=== PATIENT | female | born 1955 | race Caucasian/White ===

== ENCOUNTER → 2016-10-31 | Outpatient (CLI) | payer MEDICARE, OTHER ==
[~2016-10-31] MED LIST: ADVAIR 250-501 EACH IH; ALLEGRA PO; ANAPROX DS550 M1 PO; ATENOLOL25 MG PO; AZITHROMYCIN250 MG PO; BONIVA150 MG PO; DULERA 100 MCG/13 GM IH; ESOMEPRAZOLE MA40 MG PO; FLEXERIL10 M1 PO; FLEXERIL10 MG PO; K-DUR20 ME1 PO; LIPITOR PO; NAPROSYN500 MG PO; PRILOSEC PO; PROTONIX PO; SPIRIVA18 MCG INH; SYMBICORT80; SYMBICORT80 INH; TOPROL XL PO; ULTRAM PO
--- NOTE | ~2016-10-31 | MY9 ---
[facility] A Service of [facility] RADIOLOGY TEXT RESULTS PATIENT: JULIO CESAR ELROY LOCATION: [facility] : 57 UNIT #: [id number] AGE: [address]: Darwin Soto MD SEX: F ORDER DR: [id number] [facility] [address] [place], [place] [address] [id number] O MR#: [id number] Acc #: [id number] NAME: JULIO CESAR LEROY : 1955 SEX: F STUDY DATE/TIME: 10/31/2016 15:03 UNIT: [facility] ROOM: STUDY DESCRIPTION: MY Mammogram Screen Uni Dig Lt Attending Physician: Darwin Soto M.D., Ph.D. Ordering Physician: Darwin Soto M.D., Ph.D. Primary Care Physician: Ilan Billy M.D. MEDICAL IMAGING REPORT This report is preliminary unless electronic signature is present EXAM Screening left mammogram, 10/31 INDICATIONS History of right mastectomy for breast cancer. No current complaints. Patient reports weight loss since previous mammogram. FINDINGS Digital CC, MLO, and exaggerated CC views of the left breast were obtained. Study is reviewed with an FDA-approved CAD device. Comparison made with 09/22/2015, 09/18/2014, and 09/09/2013. Breast parenchyma remains heterogeneously dense. There are no dominant masses or suspicious microcalcification. IMPRESSION Negative mammogram. Follow up in 1 year recommended. Patients over the age of 40 are entered into a reminder system with target due date for the next mammogram. A result letter will also be sent to the patient. BIRADS: 1 Negative Dictated by... Scooter Junior Jr., M.D. THIS IS AN ELECTRONICALLY VERIFIED REPORT Scooter Junior Jr., M.D. at 11/01/2016 7:24 AM STEVE/siria TD: 10/31/2016 17:30 [facility] A Service of [facility] RADIOLOGY TEXT RESULTS PATIENT: JULIO CESAR LEROY LOCATION: [facility] #: [id number] : 57 UNIT #: [id number] AGE: [address]: Darwin Soto MD SEX: F ORDER DR: JOB #: [id number] MEDICAL IMAGING REPORT Page 1 of 1 COPY
== END | disposition home or self-care (01) ==
LOC: CWCC 14:34
DX: Z12.31 Encounter for screening mammogram for malignant neoplasm of breast (principal); Z85.3 Personal history of malignant neoplasm of breast; Z90.11 Acquired absence of right breast and nipple
CPT/HCPCS: G0202

== ENCOUNTER 2016-12-31 20:25 | Emergency (ER) | payer MEDICARE, OTHER ==
--- NOTE | ~2016-12-31 | EKG ---
PATIENT: JULIO CESAR LEROY UNIT #: [id number] Ventricular Rate: 115 BPM Atrial Rate: 115 BPM P-R Interval: 140 ms QRS Duration: 70 ms Q-T Interval: 326 ms QTC Calculation(Bezet): 450 ms P [place]: 51 degrees Calculated R [place]: 52 degrees Calculated T [place]: 54 degrees Diagnosis Line: Sinus tachycardia Diagnosis Line: Possible Left atrial enlargement Diagnosis Line: Borderline ECG Diagnosis Line: No previous ECGs available Diagnosis Line: Confirmed by ABHAY ARNOLD MD ([id number]) on Diagnosis Line: 01/01/2017 10:08:33 AM INTERPRETING MD: DIONNE
[2016-12-31 22:44] LABS: BASOPHIL% 0.2 % (0-2.5); EOSINOPHIL% 0.1 % (0.0-7.0); HEMOGLOBIN 11.7 gm/dL (12.0-16.0); LYMPHOCYTE# 0.3 X10e3 (1.0-3.5); LYMPHOCYTE% 4.1 % (17.0-45.0); MEAN CELL VOLUME 92.7 FL (83-96); MEAN CORPUSCULAR HEMOGLOBIN 30.1 PG (28-34); MEAN CORPUSCULAR HGB CONC 32.5 g/dL (30-36); MEAN PLATELET VOLUME 8.2 FL (6.5-11.5); MONOCYTE# 0.6 X10e3 (0-1.0); MONOCYTE% 7.8 % (3.0-12.0); NEUTROPHIL% 87.8 % (40-75); PLATELET COUNT 286 X10e3 (140-420); RED BLOOD COUNT 3.89 X10e (3.90-5.30); RED CELL DISTRIBUTION WIDTH 12.5 % (11.0-15.5)
[2016-12-31 22:56] LABS: DIFF IND NO
[2016-12-31 23:02] LABS: ALBUMIN SERUM 3.9 g/dL (3.5-5.0); ALKALINE PHOSPHATASE 81 U/L (32-92); ALT (SGPT) 12 U/L (10-40); AST (SGOT) 21 U/L (10-42); BILIRUBIN,TOTAL 0.5 mg/dL (0.2-2.0); BLOOD UREA NITROGEN 15 mg/dL (9-23); CALCIUM SERUM 8.8 mg/dL (8.4-10.2); CARBON DIOXIDE 38 mmol/L (22-31); CHLORIDE 95 mmol/L (100-111); CREATININE SERUM 0.4 mg/dL (0.6-1.4); GLOM FILT RATE Estimated 113.2 mL/min (>60); GLUCOSE FASTING 141 mg/dL (70-110); POTASSIUM 4.2 mmol/L (3.5-5.1); PROTEIN TOTAL SERUM 7.7 g/dL (6.0-8.3); SODIUM 137 mmol/L (135-145)
[2016-12-31 23:14] LABS: BILIRUBIN, DIRECT <0.1 mg/dL (0.0-0.2); BILIRUBIN,INDIRECT 0.4 mg/dL (0.0-0.9)
[2017-01-01 00:02] LABS: URINE SOURCE CLEAN CATCH
[2017-01-01 00:11] LABS: URINE APPEARANCE CLEAR; URINE BILIRUBIN NEG (NEG); URINE BLOOD NEG (NEG); URINE COLOR YELLOW; URINE GLUCOSE 500 MG/DL (NEG); URINE KETONE NEG (NEG); URINE LEUKOCYTE ESTERASE NEG (NEG); URINE NITRATE NEG (NEG); URINE PH 5.5 (5-8); URINE PROTEIN NEG (NEG); URINE SPECIFIC GRAVITY 1.025 (1.003-1.035); URINE UROBILINOGEN 0.2 MG/DL (NEG)
[2017-01-01 00:22] LABS: CULTURE INDICATED? NO
== END 2017-01-01 01:00 | disposition home or self-care (01) ==
LOC: CED 20:25
PROVIDERS: Emergency Medicine
DX: E11.649 Type 2 diabetes mellitus with hypoglycemia without coma (principal); J44.9 Chronic obstructive pulmonary disease, unspecified; E78.5 Hyperlipidemia, unspecified; K21.9 Gastro-esophageal reflux disease without esophagitis; I10 Essential (primary) hypertension; D64.9 Anemia, unspecified; R63.0 Anorexia; Z68.1 Body mass index [BMI] 19.9 or less, adult; Z79.899 Other long term (current) drug therapy
CPT/HCPCS: 36415; 80048; 80076; 81003; 82947; 85025; 93005; 99284

== ENCOUNTER → 2017-03-09 | Outpatient (CLI) | payer MEDICARE, OTHER ==
[2017-03-09 15:35] LABS: BASOPHIL% 0.7 % (0-2.5); HEMATOCRIT 37.2 % (35.0-45.0); HEMOGLOBIN 12.6 gm/dL (12.0-16.0); LYMPHOCYTE# 0.6 X10e3 (1.0-3.5); LYMPHOCYTE% 12.8 % (17.0-45.0); MEAN CORPUSCULAR HEMOGLOBIN 30.7 PG (28-34); MEAN CORPUSCULAR HGB CONC 33.7 g/dL (30-36); MEAN PLATELET VOLUME 7.6 FL (6.5-11.5); MONOCYTE# 0.3 X10e3 (0-1.0); MONOCYTE% 6.6 % (3.0-12.0); NEUTROPHIL# 3.7 X10e3 (1.5-7.1); NEUTROPHIL% 78.9 % (40-75); PLATELET COUNT 267 X10e3 (140-420); RED BLOOD COUNT 4.09 X10e (3.90-5.30); RED CELL DISTRIBUTION WIDTH 12.4 % (11.0-15.5); WHITE BLOOD COUNT 4.7 X10e3 (4.0-10.5)
[2017-03-09 15:46] LABS: DIFF IND NO
[2017-03-09 16:42] LABS: ALBUMIN SERUM 4.4 g/dL (3.5-5.0); BILIRUBIN,TOTAL 0.5 mg/dL (0.2-2.0); CALCIUM SERUM 9.8 mg/dL (8.4-10.2); CREATININE SERUM 0.4 mg/dL (0.6-1.4); GLOM FILT RATE Estimated 113.2 mL/min (>60); POTASSIUM 4.6 mmol/L (3.5-5.1); PROTEIN TOTAL SERUM 8.2 g/dL (6.0-8.3)
== END | disposition home or self-care (01) ==
LOC: SLAB 15:03
PROVIDERS: Nurse Practitioner
DX: A31.9 Mycobacterial infection, unspecified (principal)
CPT/HCPCS: 36415; 80053; 85025